=== PATIENT | male | born 1960 | race Caucasian/White ===

== ENCOUNTER 2018-05-16 20:31 | Emergency (ER) | payer MEDICARE, OTHER ==
[~2018-05-16] VITALS: Ht 172.7 cm; Wt 70.0 kg
[~2018-05-16 20:31] MED LIST: DICY10CA88 PO; NORCO10T PO; SIMV20TA5 PO
[2018-05-16 20:33] VITALS: BP 150/90
[2018-05-16] MEDS ORDERED: TETanus/Pertussis (Acell)/Diphther VAC/PF (Tdap-Adult) 0.5ml syringe IM ONE (20:55)
[2018-05-16] MEDS ORDERED: LIDOcaine 1.5% w/epinephrine 1:200,000 5ml ampul IJ ONE (20:55)
== END 2018-05-16 21:18 | disposition home or self-care (01) ==
LOC: ER 20:31
DX: S00.85XA Superficial foreign body of other part of head, initial encounter (principal); F17.210 Nicotine dependence, cigarettes, uncomplicated; Z90.49 Acquired absence of other specified parts of digestive tract; Z88.0 Allergy status to penicillin; Z88.2 Allergy status to sulfonamides; Z88.5 Allergy status to narcotic agent; Z79.899 Other long term (current) drug therapy; W45.8XXA Other foreign body or object entering through skin, initial encounter; Y93.89 Activity, other specified; Y92.89 Other specified places as the place of occurrence of the external cause; Y99.8 Other external cause status
CPT/HCPCS: 90471; 90715; 99284; J3490; 10120

== ENCOUNTER 2021-04-29 21:56 | Inpatient (IN) | payer MEDICARE ==
[~2021-04-29] VITALS: Ht 172.7 cm; Wt 72.0 kg
[~2021-04-29 21:56] MED LIST changes: +SIMV-42 PO; -SIMV20TA5 PO
[2021-04-29] MEDS ORDERED: LISI20TA28 PO (22:28)
[2021-04-29] MEDS ORDERED: BACL20TA PO (22:28)
[2021-04-29 22:42] LABS: BASOPHILS % (AUTO) 0.2 % (0-1); EOSINOPHILS # (AUTO) 0.3 X10'3 (0-0.9); EOSINOPHILS % (AUTO) 4.2 % (0-6); HEMATOCRIT 40.1 % (42.0-52.0); HEMOGLOBIN 13.6 g/dl (14.0-17.9); LYMPHOCYTES # (AUTO) 2.2 X10'3 (1.1-4.8); LYMPHOCYTES % (AUTO) 36.1 % (21-51); MEAN CORPUSCULAR HEMOGLOBIN 32.1 PG (27.0-31.0); MEAN CORPUSCULAR VOLUME 94.4 FL (78-98); MEAN PLATELET VOLUME 7.3 FL (7.4-10.4); MONOCYTES # (AUTO) 0.9 X10'3 (0-0.9); MONOCYTES % (AUTO) 14.8 % (2-12); NEUTROPHILS # (AUTO) 2.7 X10'3 (1.8-7.7); NEUTROPHILS % (AUTO) 44.7 % (42-75); PLATELET COUNT 255 X10'3 (140-440); RED BLOOD COUNT 4.24 X10'6 (4.70-6.10); RED CELL DISTRIBUTION WIDTH 14.1 % (11.5-14.5); WHITE BLOOD COUNT 6.1 X10'3 (4.5-11.0)
[2021-04-29 22:56] LABS: ALANINE AMINOTRANSFERASE 36 U/L (12-78); ALBUMIN 4.4 G/DL (3.4-5.0); ALBUMIN/GLOBULIN RATIO 1.6 (1.1-1.5); ALKALINE PHOSPHATASE 67 IU/L (46-116); ANION GAP 9 (8-16); ASPARTATE AMINO TRANSFERASE 30 U/L (10-37); BILIRUBIN,TOTAL 1.5 MG/DL (0.1-1.0); BLOOD UREA NITROGEN 15 MG/DL (7-18); BUN/CREATININE RATIO 15.5 (5.4-32.0); CALCIUM 8.6 MG/DL (8.5-10.1); CHLORIDE 102 MMOL/L (99-107); CREATININE 0.97 MG/DL (0.60-1.10); GLUCOSE 103 MG/DL (70-104); POTASSIUM 3.8 MMOL/L (3.5-5.1); SODIUM 139 MMOL/L (135-145); TOTAL CARBON DIOXIDE 27.7 MMOL/L (24-32); TOTAL PROTEIN 7.2 G/DL (6.4-8.2); eGFR 79 ML/MIN
--- NOTE | 2021-04-29 23:22 | NUR ---
RELIEVING RN OF BREAK, PT IS RESTING QUIETLY ON BED, WAITING TO BE EVALUATED BY PROVIDER
[2021-04-30] VITALS (7 sets, daily range): BP systolic 144–171; BP diastolic 80–91
[2021-04-30] MEDS ORDERED: hydrALAZINE 20mg/ml inj. IV PRN (01:00)
[2021-04-30] MEDS ORDERED: acetaminophen 650mg rectal suppository RC PRN (01:00)
[2021-04-30] MEDS ORDERED: regadenoson 0.4mg/5ml syringe IV PRN (01:00)
[2021-04-30] MEDS ORDERED: bisacodyl 10mg suppository rectal RC PRN (01:00)
[2021-04-30] MEDS ORDERED: normal saline 1000ml 1,000 ML IV SCH (01:00)
[2021-04-30] MEDS ORDERED: metoprolol tartrate 1mg/ml inj IV PRN (01:00)
[2021-04-30] MEDS ORDERED: magnesium hydroxide 30ml (MOM) UD suspension PO PRN (01:00)
[2021-04-30] MEDS ORDERED: aminophylline 250mg/10ml inj. IV PRN (01:00)
[2021-04-30] MEDS ORDERED: HYDROmorphone inj. 0.5 MG/0.5 ML DISP.SYRIN IV PRN (01:00)
[2021-04-30] MEDS ORDERED: diphenhydrAMINE 50 mg/ml inj IV PRN (01:00)
[2021-04-30] MEDS ORDERED: nitroGLYCERIN 0.4mg SUBLingual tab SL PRN (01:00)
[2021-04-30] MEDS ORDERED: mag hydrox/Alum hydrox/simeth 30ml oral suspension PO PRN (01:00)
[2021-04-30] MEDS ORDERED: pantoprazole 40 MG vial IV ONE (01:00)
[2021-04-30] MEDS ORDERED: diphenhydrAMINE 25mg capsule PO PRN (01:00)
[2021-04-30] MEDS ORDERED: acetaminophen 325mg tablet PO PRN (01:00)
[2021-04-30] MEDS ORDERED: ondansetron/PF 4mg/2ml inj IV PRN (01:00)
[2021-04-30] MEDS ORDERED: ondansetron 4mg rapidly disintigrating tab PO PRN (01:00)
[2021-04-30 01:31] LABS: HEMOGLOBIN A1C 5.8 % (4.5-6.2)
[2021-04-30 01:56] LABS: LIPASE 142 U/L (73-393); PHOSPHORUS 3.8 MG/DL (2.3-4.5)
[2021-04-30 06:34] LABS: URINE AMPHETAMINE SCREEN NEGATIVE (Neg); URINE BARBITUATE SCREEN NEGATIVE (Neg); URINE BENZODIAZEPINES SCREEN NEGATIVE (Neg); URINE CANNABINOID SCREEN NEGATIVE (Neg); URINE COCAINE SCREEN NEGATIVE (Neg); URINE METHADONE SCREEN NEGATIVE (Neg); URINE OPIATE SCREEN POSITIVE (Neg); URINE PHENCYCLIDINE SCREEN NEGATIVE (Neg)
[2021-04-30 06:35] LABS: CLARITY,URINE CLEAR (Clear); COLOR,URINE YELLOW (Yellow); GLUCOSE, URINE NEGATIVE (Neg); KETONES,URINE 15 mg/dl (Neg); LEUKOCYTE ESTERASE ,URINE NEGATIVE (Neg); OCCULT BLOOD,URINE NEGATIVE (Neg); PH,URINE 6.5 (4.8-8.0); PROTEIN,URINE NEGATIVE (Neg); UROBILINOGEN,URINE 0.2 E.U/dL (0.2-1.0)
[2021-04-30 06:42] LABS: UA COLLECTION TYPE CLN CATCH MIDSTREAM
[2021-04-30 06:43] LABS: NITRITES, URINE NEGATIVE (Neg)
[2021-04-30] MEDS ORDERED: aspirin 81mg tablet.DR PO SCH (08:00)
[2021-04-30] MEDS ORDERED: docusate sod 100mg capsule PO SCH (08:00)
[2021-04-30] MEDS ORDERED: HYDROcodone/acetaminophen 10/325mg tab PO SCH (08:00)
[2021-04-30] MEDS ORDERED: lisinopril 20mg tablet PO SCH (08:00)
[2021-04-30] MEDS ORDERED: heparin, porcine 5000 units/ml vial SQ SCH (08:00)
[2021-04-30] MEDS ORDERED: metoprolol succinate 25mg (24-HOUR) SR. Tablet PO SCH (08:00)
[2021-04-30] MEDS ORDERED: atorvastatin 20mg tablet PO SCH (08:00)
[2021-04-30 09:01] LABS: PARTIAL THROMBOPLASTIN TIME 28 SECONDS (22-32)
--- NOTE | 2021-04-30 10:15 | NUR ---
assumed care of pt
[2021-04-30] MEDS: baclofen 10mg tablet PO SCH ×2 (10:38→13:00)
--- NOTE | 2021-04-30 10:44 | NUR ---
nuc med tech at bedside, unable to do lexiscan at this time due to high blood pressure, pt is resting quietly on bed, resp even and unlabored, skin p/w/d, no chest pain/discomfort, medicated pt with am meds per order.
--- NOTE | 2021-04-30 10:47 | NUR ---
nitro patch held until stress test is complete
--- NOTE | 2021-04-30 10:59 | NUR ---
nuc med tech aware of blood pressure coming down, pt also amb with steady gait to restroom, had "normal bowel movement"
--- NOTE | 2021-04-30 14:01 | NUR ---
Spoke to pharmacy reagrding TID baclofen and late morning dose. OK to non-admin afternoon dose, and dose tonight as prescribed.
[2021-04-30] MEDS ORDERED: cloNIDine 0.1 mg tablet PO ONE (14:51)
--- NOTE | 2021-04-30 15:06 | NUR ---
Held clonidine as pt BP down to 144/80 without intervention. Will continue to monitor.
[2021-04-30] MEDS ORDERED: NO HOME MEDS (15:46)
[2021-04-30] MEDS ORDERED: temazepam 15mg capsule PO PRN (21:00)
== END 2021-04-30 17:32 | disposition home or self-care (01) | DRG 313 ==
LOC: ER 21:57 → ED HOLD 04-30 01:00
PROVIDERS: ADMIT Family Medicine; ATTEND Internal Medicine
PROC: 4A02XM4 Measurement of Cardiac Total Activity, External Approach (ICD-10-PCS; principal; 2021-04-30)
PROC: 3E073KZ Introduction of Other Diagnostic Substance into Coronary Artery, Percutaneous Approach (ICD-10-PCS; 2021-04-30)
DX: R07.9 Chest pain, unspecified (principal); E78.00 Pure hypercholesterolemia, unspecified; E78.5 Hyperlipidemia, unspecified; F17.210 Nicotine dependence, cigarettes, uncomplicated; G89.4 Chronic pain syndrome; I10 Essential (primary) hypertension; K57.90 Diverticulosis of intestine, part unspecified, without perforation or abscess without bleeding; Z82.49 Family history of ischemic heart disease and other diseases of the circulatory system; Z79.899 Other long term (current) drug therapy; Z88.0 Allergy status to penicillin; Z88.2 Allergy status to sulfonamides; Z88.5 Allergy status to narcotic agent; Z90.49 Acquired absence of other specified parts of digestive tract
CPT/HCPCS: 36415; 71045; 78452; 80053; 80305; 81003; 83036; 83690; 83735; 83880; 84100; 84443; 84484; 85025; 85610; 85730; 93005; 93017; 99285; A9500; C9113; G0378; J1644; J2785; J7030

== ENCOUNTER 2023-10-19 12:32 | Outpatient (CLI) | payer MEDICARE ==
[~2023-10-19 12:32] MED LIST changes: +BACL20TA PO; -DICY10CA88 PO; +LISI20TA28 PO; +NO HOME MEDS; -SIMV-42 PO
== END 2023-10-19 23:59 | disposition home or self-care (01) ==
LOC: RAD 12:32
PROVIDERS: ATTEND Family Medicine
DX: R10.9 Unspecified abdominal pain (principal)
CPT/HCPCS: 74220

== ENCOUNTER 2023-12-09 20:22 | Emergency (ER) | payer MEDICARE ==
[~2023-12-09] VITALS: Ht 172.7 cm; Wt 76.5 kg
[2023-12-09] MEDS: aspirin 81mg tab.chew PO ONE (21:02)
[2023-12-09 21:13] LABS: BASOPHILS % (AUTO) 0.3 % (0-1); EOSINOPHILS # (AUTO) 0.1 X10'3 (0-0.9); EOSINOPHILS % (AUTO) 2.8 % (0-6); HEMATOCRIT 36.6 % (42.0-52.0); HEMOGLOBIN 12.5 g/dl (14.0-17.9); LYMPHOCYTES # (AUTO) 1.3 X10'3 (1.1-4.8); MEAN CORPUSCULAR HEMOGLOBIN 32.7 PG (27.0-31.0); MEAN CORPUSCULAR HGB CONC 34.2 g/dL (33.0-36.5); MEAN CORPUSCULAR VOLUME 95.6 FL (78-98); MEAN PLATELET VOLUME 7.2 FL (7.4-10.4); MONOCYTES # (AUTO) 0.8 X10'3 (0-0.9); MONOCYTES % (AUTO) 14.7 % (2-12); NEUTROPHILS % (AUTO) 57.2 % (42-75); PLATELET COUNT 247 X10'3 (140-440); RED BLOOD COUNT 3.83 X10'6 (4.70-6.10); RED CELL DISTRIBUTION WIDTH 13.5 % (11.5-14.5); WHITE BLOOD COUNT 5.3 X10'3 (4.5-11.0)
[2023-12-09 22:01] LABS: ALBUMIN 4.2 G/DL (3.4-5.0); ANION GAP 14 (8-16); BLOOD UREA NITROGEN 19 MG/DL (7-18); BUN/CREATININE RATIO 13.4 (10.0-20.0); CHLORIDE 102 MMOL/L (99-107); CREATININE 1.42 MG/DL (0.60-1.10); GLUCOSE 111 MG/DL (70-104); PRO BRAIN NATRIURETIC PEPTIDE 293 PG/ML (0-125); SODIUM 140 MMOL/L (135-145); TOTAL CARBON DIOXIDE 24.4 MMOL/L (24-32); eCRCL 54 ML/MIN; eGFR 51 ML/MIN
[2023-12-09 22:29] LABS: POTASSIUM 3.9 MMOL/L (3.5-5.1)
[2023-12-09] MEDS: normal saline 1000ml 1,000 ML IV ONE (23:03)
[2023-12-09 23:56] VITALS: BP 153/84; PULSE 72; RESP 14; TEMP 97.7; O2SAT 98
== END 2023-12-09 23:59 | disposition home or self-care (01) ==
LOC: ER 20:23
DX: I10 Essential (primary) hypertension (principal); N17.9 Acute kidney failure, unspecified; E78.00 Pure hypercholesterolemia, unspecified; Z88.0 Allergy status to penicillin; Z88.2 Allergy status to sulfonamides; Z88.5 Allergy status to narcotic agent; Z79.1 Long term (current) use of non-steroidal anti-inflammatories (NSAID); Z79.899 Other long term (current) drug therapy; Z90.49 Acquired absence of other specified parts of digestive tract
CPT/HCPCS: 36415; 71045; 80048; 83880; 84484; 85025; 93005; 96360; 99285; J7030